=== PATIENT | male | born 1960 | race Caucasian/White ===

== ENCOUNTER 2019-10-25 07:50 | Day surgery (SDC) | payer MEDICARE, BC, OTHER ==
[~2019-10-25 07:50] MED LIST: Lactated Ringers 1,000 ML IV SCH; Lidocaine 1%/Sod Bicarbonate in NS 8.4% 1 ML Syringe IDERM PRN; Sodium Chloride 0.9% 10 ML Syringe FLUSH PRN
[2019-10-25] MEDS ORDERED: Albuterol 0.083% 2.5 MG/3 ML Neb Soln NEB ONE (07:52)
--- NOTE | 2019-10-25 08:31 | PCM.PREANE ---
Preanesthetic Assessment - Anesthesia/Transfusion/Family Hx Anesthesia History: Prior Anesthesia Without Reaction Transfusion History: No Prior Transfusion(s) Intubation History: Unknown - Review of Systems General: No Symptoms Pulmonary: No Symptoms Cardiovascular: No Symptoms Gastrointestinal: No Symptoms Neurological: No Symptoms Other: Reports: None - Physical Assessment NPO Status Date: 10/24/19 NPO Status Time: 22:00 Vital Signs: Last Vital Signs Temp 97.8 F 10/25/19 08:05 Pulse 81 10/25/19 08:05 Resp 16 10/25/19 08:05 BP 134/77 10/25/19 08:05 Pulse Ox 93 L 10/25/19 08:05 ASA Class: 3 Mental Status: Alert & Oriented x3 Airway Class: Mallampati = 3 Dentition: Reports: Cecil-Bishop(s), Broken Tooth/Teeth, Caries Thyro-Mental Finger Breadths: 3 Mouth Opening Finger Breadths: 3 ROM/Head Extension: Limited/Partial (jm) Lungs: Decreased Breath Sounds Cardiovascular: Regular Rate, Regular Rhythm - Lab Values: Laboratory Last Values SARS Virus RNA (PCR) Negative (NEGATIVE) 10/23/19 11:50 - Allergies Allergies/Adverse Reactions: Allergies Allergy/AdvReac Type Severity Reaction Status Date / Time dulaglutide [From Trulicity] Allergy Numbness Verified 10/24/19 11:29 naproxen [From Aleve] Allergy Cannot Verified 10/24/19 11:29 Remember omega-3 acid ethyl esters Allergy Cannot Verified 10/24/19 11:29 [From Lovaza] Remember Hcmvkyc-[id number]-Qme Reductase Allergy Muscle Verified 10/24/19 11:29 Inhibitor Weakness - Acknowledgements Anesthesia Type Planned: MAC Pt an Appropriate Candidate for the Planned Anesthesia: Yes Alternatives and Risks of Anesthesia Discussed w Pt/Guardian: Yes Pt/Guardian Understands and Agrees with Anesthesia Plan: Yes PreAnesthesia Questionnaire HEENT History: Reports: Impaired Vision Other HEENT History: wears glasses Cardiovascular History: Reports: High Cholesterol, Hypertension, SOB on Exertion Other Cardiovascular History: peripheral artery disease Respiratory History: Reports: Sleep Apnea Gastrointestinal History: Reports: GERD, Other (See Below) Other Gastrointestinal History: tubular adenoma, barretts esophagus Genitourinary History: Reports: Other (See Below) Other Genitourinary History: proteinuria LUG LOADER History: Reports: None Musculoskeletal History: Reports: Arthritis, Back Pain, Chronic, Osteoporosis Other Musculoskeletal History: pain disorder, bilateral carpal tunnel release, right knee replacement Neurological History: Reports: None Psychiatric History: Reports: Anxiety, Depression Endocrine/Metabolic History: Reports: Diabetes, Type I, Obesity/BMI 30+, Osteoporosis Hematologic History: Reports: None Immunologic History: Reports: None Oncologic (Cancer) History: Reports: None Dermatologic History: Reports: None - Past Surgical History Head Surgeries/Procedures: Reports: None HEENT Surgical History: Reports: None Respiratory Surgical History: Reports: None GI Surgical History: Reports: Appendectomy, Colonoscopy, EGD Female Surgical History: Reports: None Male Surgical History: Reports: None Endocrine Surgical History: Reports: None Neurological Surgical History: Reports: None Musculoskeletal Surgical History: Reports: Arthroscopic Knee, Carpal Tunnel, Kne e Replacement Oncologic Surgical History: Reports: None Dermatological Surgical History: Reports: None - SUBSTANCE USE Smoking Status *Q: Current Every Day Smoker Recreational Drug Use History: No - HOME MEDS Home Medications: Home Meds Ascorbic Acid [Vitamin C] 500 mg PO DAILY 03/24/18 [History] Aspirin [Halfprin] 81 mg PO DAILY 03/24/18 [History] Calcium Carbonate [Calcium] 600 mg PO DAILY 03/24/18 [History] Cholecalciferol (Vitamin D3) [Vitamin D3] 1,000 unit PO DAILY 03/24/18 [History] Cinnamon Bark [Cinnamon] 500 mg PO DAILY 03/24/18 [History] Ezetimibe [Zetia] 10 mg PO DAILY 03/24/18 [History] Lactobacillus Combination No.4 [Probiotic] 1 cap PO DAILY 03/24/18 [History] Lisinopril 20 mg PO DAILY 03/24/18 [History] Nitroglycerin [Nitrostat] 0.4 mg PO ASDIRECTED PRN 03/24/18 [History] Pantoprazole Sodium [Protonix] 40 mg PO DAILY 03/24/18 [History] QUEtiapine Fumarate [Quetiapine Fumarate] 100 - 150 mg PO TID PRN 03/24/18 [History] Sertraline HCl 100 mg PO DAILY 03/24/18 [History] Vitamin B Complex [B Complex] 1 tab PO DAILY 03/24/18 [History] Vitamin E 400 units PO DAILY 03/24/18 [History] atenoloL [Atenolol] 50 mg PO DAILY 03/24/18 [History] oxyCODONE HCl/Acetaminophen [Percocet 10-325 mg Tablet] 1 tab PO Q6H PRN [History] ALPRAZolam [Xanax] 1 mg PO DAILY 10/24/19 [History] Insulin Degludec [Tresiba] 90 units SQ DAILY 10/24/19 [History] - CURRENT (IN HOUSE) MEDS Current Meds: Current Medications Lactated Ringer's (Ringers, Lactated) 1,000 mls @ 125 mls/hr IV ASDIRECTED JESSEE Stop: 10/25/19 23:00 Lidocaine/Sodium Bicarbonate (Buffered Lidocaine 1% In Ns 8.4%) 0.25 ml IDERM ONETIME PRN PRN Reason: Prior to IV Start Stop: 10/25/19 18:00 Sodium Chloride (Saline Flush) 10 ml FLUSH ASDIRECTED PRN PRN Reason: Keep Vein Open Stop: 10/25/19 18:00 Discontinued Medications Albuterol (Proventil Neb Soln) 2.5 mg NEB ONETIME ONE Stop: 10/25/19 07:53
[2019-10-25] MEDS ORDERED: Propofol 200 MG/20 ML SDV ONE ×2 (08:51→08:52)
[2019-10-25] MEDS ORDERED: fentaNYL 100 MCG/2 ML SDV ONE (08:54)
[2019-10-25] MEDS ORDERED: Lidocaine 1% 4 ML ONE (08:55)
--- NOTE | 2019-10-25 09:54 | PCM.OPNOTE ---
- General Post-Op/Procedure Note Date of Surgery/Procedure: 10/25/19 Operative Procedure(s): EGD and colonoscopy Findings: 1. Gastritis 2. Romero's esophagus changes 3. Esophagitis 4. Diverticulosis 5. Ascending colon polyp Pre Op Diagnosis: upper abdominal pain, history of Romero's Esophagus, colon polyps Post-Op Diagnosis: same Anesthesia Technique: MAC Primary Surgeon: Viky Shi Anesthesia Provider: Phu Telles Pathology: 1. Gastric antrum 2. Distal esophagus biopsies 3. Upper esophagus biopsies 4. Ascending colon polyp Fluid Replacement, Intraop: 1,000 Output, Urine Amount: 0 EBL in mLs: 0 Complications: none apparent Condition: Good
--- NOTE | 2019-10-25 09:56 | PCM.PRNOTE ---
- Free Text/Narrative Note: Operative Report Date of Procedure: October 25, 2019 Pre Op Diagnosis: Upper abdominal pain, history of Romero's esophagus, history of colon polyps Post-Op Diagnosis: Same Operative Procedures: 1. EGD with biopsy 2. Colonoscopy to the cecum Primary Surgeon: Viky Shi MD Anesthesia Provider: Phu Telles CRNA Anesthesia Technique: MAC IV Fluid Replacement, Intraop: 1000cc crystalloid Output, Urine Amount: 0cc EBL in mLs: 0cc Findings: 1. Gastritis 2. Romero's esophagus changes 3. Esophagitis 4. Diverticulosis 5. Ascending colon polyp Specimens: 1. Gastric antrum 2. Distal esophagus biopsies 3. Upper esophagus biopsies 4. Ascending colon polyp Drain/Tubes: None Indication: The patient is a 59-year-old gentleman who presented to the clinic with history of Romero's esophagus and colon polyps. The patient reported symptoms including upper abdominal pain. The patient was consented for a diagnostic EGD and colonoscopy. Risks of bleeding, and perforation were discussed, and the patient agreed to the risks and wished to proceed. Description of the procedure: The patient was taken back to the endoscopy suite, and placed in the left lateral decubitus position. A bite block was placed. The patient was sedated with MAC anesthesia. The Olympus video endoscope was inserted into the oropharynx and guided under direct vision into the esophagus, stomach, and duodenum. The duodenal bulb and second portion of the duodenum were unremarkable. The gastric antrum was inspected and cold biopsy forceps were used to take tissue samples for H. pylori. There were findings of gastritis. The scope was withdrawn to the stomach and retroflexed. There was no increased fluid, food or secretions in the upper gastrointestinal tract. No erosions or ulcers were noted. The scope was withdrawn to the esophagus. Romero�s esophagus changes were noted, 4cm length measured. Biopsies were taken at 2 cm intervals with a cold biopsy forceps in 4 quadrants. Two bottles of 4 specimens were sent for pathology. The endoscope was then further withdrawn and esophagitis was noted in the upper 1/3 of the esophagus. Biopsies were taken with a cold biopsy forceps. The EGD was then terminated. Next, anorectal examination was performed. No lesions, masses or hemorrhoids were noted externally or on palpation. The scope was placed into the rectum and advanced to cecum. Upon reaching the cecum, and the patient�s cecum was entered. There was minimal tortuosity of the colon. The ileocecal valve was well visualized and the appendiceal orifice identified. At this point, the scope was slowly withdrawn, paying attention to the mucosa. The patient had good bowel prep, 90-95% of the mucosa was visible. A 3mm ascending colon polyp was noted and removed with a jumbo cold biopsy forceps. One small-mouthed diverticulum was seen in the descending colon. In the rectum, scope was retroflexed and some hem orrhoidal tissue was noted. The scope was placed back in the lumen and excess air was aspirated. The scope was removed. The patient tolerated the procedure very well. Complications: None apparent Condition: The patient was transported to PACU in stable condition. Viky Shi MD General Surgery
--- NOTE | 2019-10-25 10:05 | PCM48HPAN ---
Post Anesthesia Note - EVALUATION WITHIN 48HRS OF ANESTHETIC Vital Signs in Normal Range: Yes Patient Participated in Evaluation: Yes Respiratory Function Stable: Yes Airway Patent: Yes Cardiovascular Function Stable: Yes Hydration Status Stable: Yes Pain Control Satisfactory: Yes Nausea and Vomiting Control Satisfactory: Yes Mental Status Recovered: Yes Vital Signs: Last Vital Signs Temp 99.3 F 10/25/19 09:50 Pulse 79 10/25/19 09:50 Resp 16 10/25/19 09:50 BP 182/98 H 10/25/19 09:50 Pulse Ox 94 L 10/25/19 09:50
== END 2019-10-25 10:55 | disposition home or self-care (01) ==
LOC: JD.SDS 07:50
PROVIDERS: ATTEND Surgery
DX: Z12.11 Encounter for screening for malignant neoplasm of colon (principal); D12.2 Benign neoplasm of ascending colon; K29.70 Gastritis, unspecified, without bleeding; K20.9 Esophagitis, unspecified; K64.9 Unspecified hemorrhoids; K31.89 Other diseases of stomach and duodenum; K57.30 Diverticulosis of large intestine without perforation or abscess without bleeding; E78.00 Pure hypercholesterolemia, unspecified; I11.9 Hypertensive heart disease without heart failure; F41.9 Anxiety disorder, unspecified; F32.9 Major depressive disorder, single episode, unspecified; F17.210 Nicotine dependence, cigarettes, uncomplicated; E66.9 Obesity, unspecified; E11.29 Type 2 diabetes mellitus with other diabetic kidney complication; N28.9 Disorder of kidney and ureter, unspecified; E78.2 Mixed hyperlipidemia; Z11.59 Encounter for screening for other viral diseases; Z79.899 Other long term (current) drug therapy; Z86.010 Personal history of colon polyps; Z88.8 Allergy status to other drugs, medicaments and biological substances; Z98.890 Other specified postprocedural states; Z87.19 Personal history of other diseases of the digestive system; Z79.82 Long term (current) use of aspirin; Z79.4 Long term (current) use of insulin; Z68.41 Body mass index [BMI] 40.0-44.9, adult
CPT/HCPCS: 43239; 45380; 82962; 94640; J2001; J2704; J3010; J7120; U0002; 00813